=== PATIENT | female | born 2000 ===

== ENCOUNTER 2020-10-26 12:25 | Emergency (ER) | payer SELFPAY ==
[2020-10-26] MEDS ORDERED: Sodium Chloride 0.9% 1,000 ML IV ONE (12:30)
[2020-10-26] MEDS ORDERED: Sodium Chloride 0.9% 10 ML Syringe FLUSH PRN (12:30)
[2020-10-26] MEDS ORDERED: Sodium Chloride 0.9% 2.5 ML Syringe FLUSH PRN (12:30)
--- NOTE | 2020-10-26 12:58 | EDM.PDOC ---
ED HPI GENERAL MEDICAL PROBLEM - General Chief Complaint: ENT Problem Stated Complaint: TONSILS Time Seen by Provider: 10/26/20 12:29 Source of Information: Reports: Patient History Limitations: Reports: No Limitations - History of Present Illness INITIAL COMMENTS - FREE TEXT/NARRATIVE: HISTORY AND PHYSICAL: History of present illness: Patient is a 20-year-old female who presents to the emergency room with complaints of sore throat and throat swelling that started yesterday. She was seen at [facility] yesterday and was diagnosed with tonsillitis. She was started on Augmentin but does not feel any improvement. She was seen today at the clinic and was then referred here to the emergency room as they are concerned she may need IV antibiotics and possible admission. Patient is able to speak in full sentences, swallow saliva, does not have a hoarse voice. She states it is painful to talk and does have the sensation of her throat feeling full. Patient denies any fever, headache, change in vision, syncope or near syncope. Denies any chest pain, back pain, shortness of breath or cough. Denies any GI or symptoms. No concern for . Review of systems: As per history of present illness and below otherwise all systems reviewed and negative. Past medical history: As per history of present illness and as reviewed below otherwise noncontributory. Surgical history: As per history of present illness and as reviewed below otherwise noncontributory. Social history: See social history for further information Family history: As per history of present illness and as reviewed below otherwise noncontributory. Physical exam: General: Well developed and well nourished. Alert and orientated x 3. Nontoxic in appearance and in no acute distress. Vital signs are stable and have been reviewed by me. Nursing notes were reviewed. HEENT: Atraumatic, normocephalic, pupils equal and reactive bilaterally, negative for conjunctival pallor or scleral icterus, mucous membranes moist, TMs normal bilaterally, bilateral tonsil enlargement with exudate, right slightly larger than left. Neck is supple, bilateral tenderness, trachea midline. No drooling or trismus noted. No meningeal signs. No hot potato voice noted. Lungs: Clear to auscultation bilaterally. No wheezes, rales, or rhonchi. Chest nontender. Normal work of breathing, no accessory muscles used. Heart: S1S2, regular rate and rhythm without overt murmur, gallops, or rubs. No JVD. No peripheral edema Abdomen: Soft, nondistended, nontender. Negative for masses or costovertebral tenderness. Skin: Intact, warm, dry. No lesions or rashes noted. Hematologic: No petechiae or purpra. Mucosa appropriate color and normal nail bed color and refill. Extremities: Atraumatic, moves all extremities per self without difficulty or deficits, negative for cords or calf pain. Neurovascular unremarkable. Neuro: Awake, alert, oriented. Cranial nerves II through XII unremarkable. Cerebellum unremarkable. Motor and sensory unremarkable throughout. Exam nonfocal. Psychiatric: Mood and affect are appropriate. Normal thought process. Answering questions appropriately. Notes: *This patient was seen and evaluated during the 2019 SARS-CoV-2 novel coronavirus pandemic period. Community viral transmission is ongoing at time of this encounter and the emergency department is operating under pandemic response procedures. Lab work is unremarkable. CT shows symmetric enlargement and striated enhancement within the palatine tonsils bilaterally compatible with tonsillitis. No evidence of a peritonsillar abscess. Mild bilateral cervical lymphadenopathy is likely reactive. Patient is tolerating PO and able to swallow without difficulty, although is painful. At the clinic she was told she may need admission. We did discuss admission versus discharge to home with outpatient therapy. She prefers to be discharged to home as she is eating and drinking without any difficulty. I did have Dr Shepard look at this patient who agrees that she is appropriate for discharge as long as the patient is comfortable. The initial strep screening is negative but I am going treat her with Bicillin LA while waiting for the culture. Diagnostics: CBC, CMP, Lactate, CT soft tissue neck Therapeutics: Solu-Medrol, IV fluids, Bicillin-LA IM Prescription: Tylenol with Codeine Impression: Tonsillitis Plan: 1. You can stop the Augmentin antibiotic as you received the PenVK injection. Good handwashing and no sharing eating or drinking utensils. As we discussed, if your symptoms should worsen or new symptoms develop please return to the emergency room. 2. Warm Salt water gargles (rinse and spit) 3-4 x daily. Please get a new tooth brush after completion of your medication 3. Tylenol and or ibuprofen as needed for pain management. 4. Follow-up with your primary care provider in the next 1-2 days. Definitive disposition and diagnosis as appropriate pending reevaluation and review of above. Throat Pain Score (Numeric/FACES): 10 - Related Data Allergies Allergy/AdvReac Type Severity Reaction Status Date / Time No Known Allergies Allergy Verified 10/26/20 13:01 Home Meds: Home Meds Acetaminophen/Codeine [Tylenol/Codeine 120-12 MG/5 ML] 5 ml PO Q4H PRN #1 bottle 10/26/20 [Rx] Amoxicillin/Potassium Clav [Amox-Clav 500-125 mg Tablet] 1 dose PO ASDIRECTED 10/26/20 [History] ED ROS ENT - Review of Systems Review Of Systems: Comprehensive ROS is negative, except as noted in HPI. ED EXAM, ENT - Physical Exam Exam: See Below (See dictation) Course - Vital Signs Last Recorded V/S: Last Vital Signs Temp 97.9 F 10/26/20 13:02 Pulse 70 10/26/20 13:02 Resp 18 10/26/20 13:02 BP 136/82 10/26/20 13:02 Pulse Ox 99 10/26/20 13:02 - Orders/Labs/Meds Orders: Active Orders 24 hr Category Date Time Status CULTURE URINE [RM] Stat Lab 10/26/20 13:18 Received Sodium Chloride 0.9% [Normal Saline] 1,000 ml Med 10/26/20 12:30 Active IV STAT Sodium Chloride 0.9% [Saline Flush] Med 10/26/20 12:30 Active 10 ml FLUSH ASDIRECTED PRN Sodium Chloride 0.9% [Saline Flush] Med 10/26/20 12:30 Active 2.5 ml FLUSH ASDIRECTED PRN Saline Lock Insert [OM.PC] Stat Oth 10/26/20 12:30 Ordered Medication Orders Sodium Chloride (Normal Saline) 1,000 mls @ 125 mls/hr IV STAT ONE Stop: 10/26/20 20:29 Last Admin: 10/26/20 13:14 Dose: 125 mls/hr Documented by: ARANANG Sodium Chloride (Sodium Chloride 0.9% 10 Ml Syringe) 10 ml FLUSH ASDIRECTED PRN PRN Reason: Keep Vein Open Last Admin: 10/26/20 13:28 Dose: 10 ml Documented by: ARANANG Sodium Chloride (Sodium Chloride 0.9% 2.5 Ml Syringe) 2.5 ml FLUSH ASDIRECTED PRN PRN Reason: Keep Vein Open Last Admin: 10/26/20 13:28 Dose: 2.5 ml Documented by: JACE Labs: Laboratory Tests 10/26/20 10/26/20 10/26/20 Range/Units 13:08 13:08 13:08 WBC 10.34 (4.0-11.0) K/uL RBC 4.72 (4.30-5.90) M/uL Hgb 13.8 (12.0-16.0) g/dL Hct 40.1 (36.0-46.0) % MCV 85.0 (80.0-98.0) fL MCH 29.2 (27.0-32.0) pg MCHC 34.4 (31.0-37.0) g/dL RDW Std Deviation 41.7 (28.0-62.0) fl RDW Coeff of Chris 14 (11.0-15.0) % Plt Count 229 (150-400) K/uL MPV 10.20 (7.40-12.00) fL Neut % (Auto) 74.0 (48.0-80.0) % Lymph % (Auto) 18.8 (16.0-40.0) % [place] % (Auto) 6.1 (0.0-15.0) % Eos % (Auto) 0.9 (0.0-7.0) % Baso % (Auto) 0.2 (0.0-1.5) % Neut # (Auto) 7.7 H (1.4-5.7) K/uL Lymph # (Auto) 1.9 (0.6-2.4) K/uL [place] # (Auto) 0.6 (0.0-0.8) K/uL Eos # (Auto) 0.1 (0.0-0.7) K/uL Baso # (Auto) 0.0 (0.0-0.1) K/uL Lactate 0.7 (0.20-2.00) mmol/L Sodium 140 (136-145) mmol/L Potassium 3.9 (3.5-5.1) mmol/L Chloride 103 (98-107) mmol/L Carbon Dioxide 26.2 (21.0-32.0) mmol/L BUN 8 (7.0-18.0) mg/dL Creatinine 0.8 (0.6-1.0) mg/dL Est Cr Clr Drug Dosing 133.52 mL/min Estimated GFR (MDRD) > 60.0 ml/min Glucose 82 (74-106) mg/dL Calcium 9.3 (8.5-10.1) mg/dL Total Bilirubin 0.8 (0.2-1.0) mg/dL AST 14 L (15-37) IU/L ALT 16 (14-63) IU/L Alkaline Phosphatase 51 (46-116) U/L Total Protein 8.1 (6.4-8.2) g/dL Albumin 4.0 (3.4-5.0) g/dL Globulin 4.1 H (2.6-4.0) g/dL Albumin/Globulin Ratio 1.0 (0.9-1.6) Urine Color Urine Appearance Urine pH (5.0-8.0) Ur Specific [place] (1.001-1.035) Urine Protein (NEGATIVE) mg/dL Urine Glucose (UA) (NEGATIVE) mg/dL Urine Ketones (NEGATIVE) mg/dL Urine Occult Blood (NEGATIVE) Urine Nitrite (NEGATIVE) Urine Bilirubin (NEGATIVE) Urine Urobilinogen (<2.0) EU/dL Ur Leukocyte Esterase (NEGATIVE) Urine RBC (0-2/HPF) Urine WBC (0-5/HPF) Ur Epithelial Cells (NONE-FEW) Urine Bacteria (NEGATIVE) Urine HCG, Qual (NEGATIVE) SARS-CoV-2 RNA (WES) (NEGATIVE) Group A Strep (PCR) (NOT DETECT) 10/26/20 10/26/20 10/26/20 Range/Units 13:18 13:18 13:22 WBC (4.0-11.0) K/uL RBC (4.30-5.90) M/uL Hgb (12.0-16.0) g/dL Hct (36.0-46.0) % MCV (80.0-98.0) fL MCH (27.0-32.0) pg MCHC (31.0-37.0) g/dL RDW Std Deviation (28.0-62.0) fl RDW Coeff of Chris (11.0-15.0) % Plt Count (150-400) K/uL MPV (7.40-12.00) fL Neut % (Auto) (48.0-80.0) % Lymph % (Auto) (16.0-40.0) % [place] % (Auto) (0.0-15.0) % Eos % (Auto) (0.0-7.0) % Baso % (Auto) (0.0-1.5) % Neut # (Auto) (1.4-5.7) K/uL Lymph # (Auto) (0.6-2.4) K/uL [place] # (Auto) (0.0-0.8) K/uL Eos # (Auto) (0.0-0.7) K/uL Baso # (Auto) (0.0-0.1) K/uL Lactate (0.20-2.00) mmol/L Sodium (136-145) mmol/L Potassium (3.5-5.1) mmol/L Chloride (98-107) mmol/L Carbon Dioxide (21.0-32.0) mmol/L BUN (7.0-18.0) mg/dL Creatinine (0.6-1.0) mg/dL Est Cr Clr Drug Dosing mL/min Estimated GFR (MDRD) ml/min Glucose (74-106) mg/dL Calcium (8.5-10.1) mg/dL Total Bilirubin (0.2-1.0) mg/dL AST (15-37) IU/L ALT (14-63) IU/L Alkaline Phosphatase (46-116) U/L Total Protein (6.4-8.2) g/dL Albumin (3.4-5.0) g/dL Globulin (2.6-4.0) g/dL Albumin/Globulin Ratio (0.9-1.6) Urine Color YELLOW Urine Appearance SLT CLOUDY Urine pH 6.0 (5.0-8.0) Ur Specific [place] 1.025 (1.001-1.035) Urine Protein NEGATIVE (NEGATIVE) mg/dL Urine Glucose (UA) NEGATIVE (NEGATIVE) mg/dL Urine Ketones NEGATIVE (NEGATIVE) mg/dL Urine Occult Blood NEGATIVE (NEGATIVE) Urine Nitrite NEGATIVE (NEGATIVE) Urine Bilirubin NEGATIVE (NEGATIVE) Urine Urobilinogen 0.2 (<2.0) EU/dL Ur Leukocyte Esterase TRACE H (NEGATIVE) Urine RBC 0-4 (0-2/HPF) Urine WBC 3-6 (0-5/HPF) Ur Epithelial Cells FEW (NONE-FEW) Urine Bacteria 3+ H (NEGATIVE) Urine HCG, Qual NEGATIVE (NEGATIVE) SARS-CoV-2 RNA (WES) NEGATIVE (NEGATIVE) Group A Strep (PCR) (NOT DETECT) 10/26/20 Range/Units 13:30 WBC (4.0-11.0) K/uL RBC (4.30-5.90) M/uL Hgb (12.0-16.0) g/dL Hct (36.0-46.0) % MCV (80.0-98.0) fL MCH (27.0-32.0) pg MCHC (31.0-37.0) g/dL RDW Std Deviation (28.0-62.0) fl RDW Coeff of Chris (11.0-15.0) % Plt Count (150-400) K/uL MPV (7.40-12.00) fL Neut % (Auto) (48.0-80.0) % Lymph % (Auto) (16.0-40.0) % [place] % (Auto) (0.0-15.0) % Eos % (Auto) (0.0-7.0) % Baso % (Auto) (0.0-1.5) % Neut # (Auto) (1.4-5.7) K/uL Lymph # (Auto) (0.6-2.4) K/uL [place] # (Auto) (0.0-0.8) K/uL Eos # (Auto) (0.0-0.7) K/uL Baso # (Auto) (0.0-0.1) K/uL Lactate (0.20-2.00) mmol/L Sodium (136-145) mmol/L Potassium (3.5-5.1) mmol/L Chloride (98-107) mmol/L Carbon Dioxide (21.0-32.0) mmol/L BUN (7.0-18.0) mg/dL Creatinine (0.6-1.0) mg/dL Est Cr Clr Drug Dosing mL/min Estimated GFR (MDRD) ml/min Glucose (74-106) mg/dL Calcium (8.5-10.1) mg/dL Total Bilirubin (0.2-1.0) mg/dL AST (15-37) IU/L ALT (14-63) IU/L Alkaline Phosphatase (46-116) U/L Total Protein (6.4-8.2) g/dL Albumin (3.4-5.0) g/dL Globulin (2.6-4.0) g/dL Albumin/Globulin Ratio (0.9-1.6) Urine Color Urine Appearance Urine pH (5.0-8.0) Ur Specific [place] (1.001-1.035) Urine Protein (NEGATIVE) mg/dL Urine Glucose (UA) (NEGATIVE) mg/dL Urine Ketones (NEGATIVE) mg/dL Urine Occult Blood (NEGATIVE) Urine Nitrite (NEGATIVE) Urine Bilirubin (NEGATIVE) Urine Urobilinogen (<2.0) EU/dL Ur Leukocyte Esterase (NEGATIVE) Urine RBC (0-2/HPF) Urine WBC (0-5/HPF) Ur Epithelial Cells (NONE-FEW) Urine Bacteria (NEGATIVE) Urine HCG, Qual (NEGATIVE) SARS-CoV-2 RNA (WES) (NEGATIVE) Group A Strep (PCR) NOT DETECTED (NOT DETECT) Meds: Medications Generic Name Dose Route Start Last Admin Trade Name Freq PRN Reason Stop Dose Admin Sodium Chloride 1,000 mls @ 125 mls/hr 10/26/20 12:30 10/26/20 13:14 Normal Saline IV 10/26/20 20:29 125 mls/hr STAT ONE Administration Sodium Chloride 10 ml 10/26/20 12:30 10/26/20 13:28 Sodium Chloride 0.9% 10 Ml Syringe FLUSH 10 ml ASDIRECTED PRN Administration Keep Vein Open Sodium Chloride 2.5 ml 10/26/20 12:30 10/26/20 13:28 Sodium Chloride 0.9% 2.5 Ml Syringe FLUSH 2.5 ml ASDIRECTED PRN Administration Keep Vein Open Discontinued Medications Generic Name Dose Route Start Last Admin Trade Name Freq PRN Reason Stop Dose Admin Iopamidol 80 ml 10/26/20 14:24 10/26/20 14:25 Iopamidol 755 Mg/Ml 500 Ml Multipack Bottle IVPUSH 10/26/20 14:25 80 ml ONETIME ONE Administration Methylprednisolone Sodium Succinate 125 mg 10/26/20 13:14 10/26/20 13:28 Methylprednisolone Sodium Succinate 125 Mg/2 Ml Sdv IVPUSH 10/26/20 13:15 125 mg ONETIME ONE Administration Penicillin G Benzathine 1.2 millunits 10/26/20 15:00 Penicillin G Benzathine 1,200,000 Units/2 Ml Syringe IM 10/26/20 15:01 ONETIME ONE Departure - Departure Time of Disposition: 14:59 Disposition: Home, Self-Care 01 Clinical Impression: Acute bacterial tonsillitis - Discharge Information Prescriptions: Acetaminophen/Codeine [Tylenol/Codeine 120-12 MG/5 ML] 5 ml PO Q4H PRN #1 bottle PRN Reason: Pain Instructions: Tonsillitis, [id number] Referrals: Josephine Hdez FLOORPERSON [Primary Care Provider] - Forms: ED Department Discharge Additional Instructions: The following information is given to patients seen in the emergency department who are being discharged to home. This information is to outline your options for follow-up care. We provide all patients seen in our emergency department with a follow-up referral. The need for follow-up, as well as the timing and circumstances, are variable depending upon the specifics of your emergency department visit. If you don't have a primary care physician on staff, we will provide you with a referral. We always advise you to contact your personal physician following an emergency department visit to inform them of the circumstance of the visit and for follow-up with them and/or the need for any referrals to a consulting specialist. The emergency department will also refer you to a specialist when appropriate. This referral assures that you have the opportunity for follow-up care with a specialist. All of these measure are taken in an effort to provide you with optimal care, which includes your follow-up. Under all circumstances we always encourage you to contact your private physician who remains a resource for coordinating your care. When calling for follow-up care, please make the office aware that this follow-up is from your recent emergency room visit. If for any reason you are refused follow-up, please contact the [facility] Emergency Department at and asked to speak to the emergency department charge nurse. [facility] [address] [place] [id number] [facility] [address] [place] [id number] Thank you for choosing the [facility] emergency department in [place] for your medical needs today. It was a pleasure caring for you. Today you were seen in the emergency department for tonsillitis. 1. You can stop the Augmentin antibiotic as you received the PenVK injection. Good handwashing and no sharing eating or drinking utensils. As we discussed, if your symptoms should worsen or new symptoms develop please return to the emergency room. 2. Warm Salt water gargles (rinse and spit) 3-4 x daily. Please get a new tooth brush after completion of your medication 3. Tylenol and or ibuprofen as needed for pain management. 4. Follow-up with your primary care provider in the next 1-2 days. Sepsis Event Note (ED) - Focused Exam Vital Signs: Vital Signs Temp Pulse Resp BP Pulse Ox 10/26/20 13:02 97.9 F 70 18 136/82 99 - My Orders Last 24 Hours: My Active Orders 10/26/20 12:30 Sodium Chloride 0.9% [Normal Saline] 1,000 ml IV STAT Sodium Chloride 0.9% [Saline Flush] 10 ml FLUSH ASDIRECTED PRN Sodium Chloride 0.9% [Saline Flush] 2.5 ml FLUSH ASDIRECTED PRN Saline Lock Insert [OM.PC] Stat 10/26/20 13:18 CULTURE URINE [RM] Stat - Assessment/Plan Last 24 Hours: My Active Orders 10/26/20 12:30 Sodium Chloride 0.9% [Normal Saline] 1,000 ml IV STAT Sodium Chloride 0.9% [Saline Flush] 10 ml FLUSH ASDIRECTED PRN Sodium Chloride 0.9% [Saline Flush] 2.5 ml FLUSH ASDIRECTED PRN Saline Lock Insert [OM.PC] Stat 10/26/20 13:18 CULTURE URINE [RM] Stat
[2020-10-26] MEDS ORDERED: methylPREDNISolone Sodium Succinate 125 MG/2 ML SDV IVPUSH ONE (13:14)
[2020-10-26 13:50] LABS: BLOOD UREA NITROGEN,BUN 8 mg/dL (7.0-18.0); CARBON DIOXIDE,CO2 26.2 mmol/L (21.0-32.0); CHLORIDE,CL 103 mmol/L (98-107); GLUCOSE RANDOM 82 mg/dL (74-106); POTASSIUM,K 3.9 mmol/L (3.5-5.1); SODIUM,NA 140 mmol/L (136-145)
[2020-10-26] MEDS ORDERED: Iopamidol 755 MG/ML 500 ML Multipack Bottle IVPUSH ONE (14:24)
--- NOTE | 2020-10-26 14:48 | CT ---
INDICATION: Throat pain, rule out tonsillar abscess. COMPARISON: None. TECHNIQUE: CT of the neck soft tissue with 80 cc Isovue 370 IV contrast. Coronal and sagittal reconstructions. FINDINGS: There is symmetric enlargement and striated enhancement within the palatine tonsils bilaterally (series 301 image 81 and series 303, image 51). No evidence of a peritonsillar abscess. The tonsils touch in the midline. The airway is otherwise widely patent. Mild bilateral cervical lymphadenopathy is likely reactive. The paranasal sinuses and mastoid air cells are clear. The nasopharynx is normal in appearance. The parotid and submandibular glands are normal in size with uniform enhancement. The valleculae, epiglottis, aryepiglottic folds and piriform sinuses are normal in appearance. The larynx and subglottic trachea are normal in appearance. Visualized intracranial contents are unremarkable. No cervical or supraclavicular lymphadenopathy. The thyroid gland is normal in appearance. Cervical vasculature is grossly patent. The visualized cervical spine is unremarkable. The lung apices are clear. IMPRESSION: 1. Symmetric enlargement and striated enhancement within the palatine tonsils bilaterally compatible with tonsillitis. 2. No evidence of a peritonsillar abscess. 3. Mild bilateral cervical lymphadenopathy is likely reactive. Please note that all CT scans at this facility use dose modulation, iterative reconstruction, and/or weight-based dosing when appropriate to reduce radiation dose to as low as reasonably achievable. Dictated by Michaela Denise MD @ Oct 26 2020 2:35PM Signed by Dr. Michaela Denise @ Oct 26 2020 2:47PM
[2020-10-26] MEDS ORDERED: Penicillin G Benzathine 1,200,000 Units/2 ML Syringe IM ONE (15:00)
== END 2020-10-26 15:38 | disposition home or self-care (01) ==
LOC: MW.ED 12:25
DX: J03.80 Acute tonsillitis due to other specified organisms (principal); B96.89 Other specified bacterial agents as the cause of diseases classified elsewhere; Z20.822 Contact with and (suspected) exposure to COVID-19
CPT/HCPCS: 36415; 70491; 80053; 81001; 81025; 83605; 85025; 87086; 87635; 87651; 96372; 96374; 99283; J0561; J2930; J7030; Q9967; U0002